=== PATIENT | male | born 2000 | race Asian ===

== ENCOUNTER → 2021-03-05 | Outpatient (CLI) | payer BC ==
--- NOTE | 2021-03-05 13:02 | US ---
EXAMINATION TYPE: US abdomen complete DATE OF EXAM: 03/05/2021 COMPARISON: NONE CLINICAL HISTORY: 20-year-old male R10.9 ABD PAIN. Constipation Some limitations due to rib shadowing. TECHNIQUE: Multiple sonographic images of the abdomen are obtained. FINDINGS: EXAM MEASUREMENTS: Liver Length: 16.4 cm Gallbladder Wall: .3 cm CBD: .2 cm Spleen: 12.0 cm Right Kidney: 10.6 x 3.8 x 3.4 cm Left Kidney: 9.6 x 4.9 x 2.6 cm Pancreas: wnl Liver: wnl Gallbladder: No stones seen Evidence for sonographic Easton's sign: No CBD: wnl Spleen: 1.7 cm accessory spleen visualized. Right Kidney: wnl Left Kidney: wnl Upper IVC: wnl Abd Aorta: wnl IMPRESSION: Unremarkable sonographic examination of the abdomen.
== END | disposition home or self-care (01) ==
LOC: RADUSWWP 10:08 → EDBD 10:20
PROVIDERS: ATTEND Family Medicine
DX: R10.9 Unspecified abdominal pain (principal); K59.00 Constipation, unspecified
CPT/HCPCS: 76700

== ENCOUNTER 2021-03-19 08:51 | Day surgery (SDC) | payer BC ==
[2021-03-17 16:38] VITALS: BMI 18.1
[~2021-03-19 08:51] MED LIST: LACTATED RINGERS 1,000 ML IV SCH
[2021-03-19 09:22] VITALS: TEMP 98.3
[2021-03-19] MEDS ORDERED: PROPOFOL 10 MG/ML 20 ML VIAL IV ONE (09:54)
[2021-03-19] MEDS ORDERED: fentaNYL (PF) 50 MCG/ML 2 ML AMP ONE (09:54)
[2021-03-19] MEDS ORDERED: LIDOCAINE 1% INJ 10MG/ML (20 ML MDV) ONE (09:54)
--- NOTE | 2021-03-19 10:24 | P.PCN ---
Date of Procedure: 03/19/21 Description of Procedure: BRIEF HISTORY: Patient is a 20-year-old male presenting for outpatient colonoscopy for evaluation of altered bowel function and constipation. Patient reports difficulty straining and passing bowel movements. He states at times it takes him hours of bowel movements. PROCEDURE PERFORMED: Colonoscopy. PREOPERATIVE DIAGNOSIS: Constipation, altered bowel function. ESTIMATED BLOOD LOSS: Minimal. IV sedation per Anesthesia. PROCEDURE: After informed consent was obtained, the patient, was brought into the endoscopy unit. IV sedation was administered by Anesthesia under continuous monitoring. Digital rectal examination was normal. Initially the Olympus CF-190 flexible video colonoscope was then inserted in the rectum, gradually advanced into the cecum without any difficulty. Careful examination was performed as the scope was gradually being withdrawn. Ileocecal valve and the appendiceal orifice were visualized and appeared normal. Prep was excellent. Mucosa of the cecum, ascending colon, transverse colon, descending colon, sigmoid colon, and rectum appeared normal, with intubation of the terminal ileum which appeared normal. Retroflexion was performed in the rectum and no lesions were seen, with low- grade internal hemorrhoids seen. The patient tolerated the procedure well. IMPRESSION: Normal-appearing colon from rectum to cecum and normal appearing terminal ileum. RECOMMENDATIONS: Findings of this examination were discussed with the patient and his family. Okay to resume diet. Okay to resume medication. Would recommend supplementation with daily fiber supplement or MiraLAX to be titrated to daily formed bowel movements.
[2021-03-19 10:58] VITALS: BP 107/71; PULSE 85; RESP 16
== END 2021-03-19 11:30 | disposition home or self-care (01) ==
LOC: ORWHC2ENDO 08:51
PROVIDERS: ATTEND Internal Medicine
DX: K59.00 Constipation, unspecified (principal)
CPT/HCPCS: 45378; J2001; J3010; J2704